=== PATIENT | male | born 1995 | race Caucasian/White ===

== ENCOUNTER 2018-08-14 10:18 | Emergency (ER) | payer SELFPAY ==
[2018-08-14 10:19] VITALS: BP 136/81; PULSE 75; RESP 18; TEMP 36.6; O2SAT 100; BMI 21.1
--- NOTE | 2018-08-14 11:00 | ED.DCSUM_ITS ---
History of Present Illness Chief Complaint: Ear Problem Informant: Patient Onset: - Context: Sudden Onset - Onset of pain Tuesday Timing: Continuous Quality: Pain Location: Right greater than left Current Severity: Moderate Maximum Severity: Severe Worsened by: Nothing Relieved by: Nothing Associated Symptoms: Viral-like symptoms Narrative: Patient is a 23-year-old male who presents with bilateral ear pain. He states the right ear hurts more than left. He does complain of nasal congestion. Onset of pain this past Tuesday. He states he has not placed a Q-tip in his ear. He has not noted any drainage. Denies ringing in his ear. Denies decreased hearing. Denies dental pain. Difficulty opening or closing his mouth. Does complain of mild right-sided facial pain. Denies headache. Denies light sensitivity, neck pain or neck stiffness. He denies rash. Past Medical History - Allergies and Home Meds Allergies/Adverse Reactions: Allergies No Known Allergies Allergy (Verified 08/14/18 10:21) Primary Care Physician: Care Physician,No Primary [Primary Care Provider] - Prior records reviewed: Yes Past Medical History: None Surgical History: no surgical history Lives: Alone Smoking Status: Current every day smoker Drugs: None Review of Systems General: Denies: Chills, Fever, Malaise, Sweats Eyes: Denies: Visual changes - bilaterally, Blurred vision - left, Diplopia ENT: Reports: Bilateral ear pain, Rhinorrhea. Denies: Sore throat Cardiovascular: Denies: Chest pain, Palpitations Respiratory: Reports: Cough. Denies: Dyspnea, Dyspnea on exertion Gastrointestinal: Denies: Nausea, Vomiting Musculoskeletal: Denies: Myalgias, Arthralgias, Neck pain, Swelling Neurological: Reports: Headache. Denies: Weakness, Parasthesia, Numbness Allergy: Denies: Uticaria, Swelling of the mouth, Swelling of the tongue Physical Exam Vital Signs/Narrative: Vital Signs Temp Pulse Resp BP Pulse Ox 08/14/18 10:19 98 F 75 18 136/81 H 100 Inital Vital Signs reviewed: Yes General: Well nourished, Well developed, Acute Distress, - - Patient is holding his right ear. Head: Normocephalic, Atraumatic Eyes: Perrl, EOMI. Negative for: Pale conjunctiva, Scleral icterus ENT: Moist mucous membranes, No rhinorrhea, TM's clear, - - There is pain with pulling on the auricle push on the tragus on the right. The external auditory canal is erythematous. There is also clicking bilaterally with opening closing his mouth over the TMJ joint. Neck: Supple, Nontender. Negative for: No lymphadenopathy, No JVD Cardiovascular: Regular rate, Regular rhythm, No murmurs, Normal S1, Normal S2 Respiratory: No distress, CTA bilaterally, Chest nontender Skin: Normal color, No rash Neurological: Alert, Oriented x3, Cranial nerves II-XII grossly intact, Normal Strength, Normal Sensation Diagnostic/Tx/Re-eval - Medical Decision Making Since there is no contraindication to NSAIDs he was treated with NSAIDs for his TMJ pain. He was treated with Cortisporin otic suspension for his otitis ext faisal on the right. ED Disposition - Plan for ED Patient: Disposition: Home or Assisted Living Diagnosis: Otitis externa of right ear, TMJ syndrome Instructions: ED Otitis Externa, ED TMJ Syndrome Prescriptions: Naproxen [Naprosyn] 500 mg PO BID #14 tab Ciprofloxacin/Hydrocortisone [Cipro Hc Otic Suspension] 10 drp OT 4X/DAY #1 drops.susp Referrals: Care Physician,No Primary [Primary Care Provider] - 5-7 Days Additional Instructions: Follow-up with your primary care provider.
[2018-08-14] MEDS: Naproxen 250 MG Tablet 500 MG PO (11:25)
== END 2018-08-14 11:26 | disposition home or self-care (01) ==
LOC: ED 11:17
PROVIDERS: Emergency Provider Emergency Medicine
DX: H60.91 Unspecified otitis externa, right ear (principal); M26.603 Bilateral temporomandibular joint disorder, unspecified; F17.200 Nicotine dependence, unspecified, uncomplicated
CPT/HCPCS: 99282

== ENCOUNTER 2022-09-25 13:45 | Emergency (ER) | payer MEDICAID, SELFPAY ==
[2022-09-25 13:46] VITALS: BP 148/105; PULSE 69; RESP 16; TEMP 36.3; O2SAT 99; BMI 30.9
--- NOTE | 2022-09-25 14:23 | EDS_ITS ---
HPI <IDALIA Christian - Last Filed: 09/25/22 14:32> History of Present Illness Chief Complaint: Laceration Narrative Narrative: Patient is a 27-year-old male with no significant medical history who has a tetanus vaccination update last year presents the emergency department laceration of the right index finger. Patient dates he was working on his car when he did not see a sharp edge and cut the palmar aspect of his right finger. Patient has full range of motion of the index finger. Patient is no numbness or tingling. Patient states that the bleeding was excessive, he saw some fatty tissue and knew he needed stitches PFS <IDALIA Christian - Last Filed: 09/25/22 14:32> [facility] Medical History no medical history Home Medications ciprofloxacin 0.2 %-hydrocortisone 1 % ear drops,suspension 10 drp OT 4X/DAY ##1 08/14/18 [Rx Last Taken Unknown] naproxen 500 mg tablet 500 mg PO BID #14 tabs 08/14/18 [Rx Last Taken Unknown] Allergy/AdvReac Type Severity Reaction Status Date / Time No Known Allergies Allergy Verified 09/25/22 13:46 Family History no significant family his Surgical History no surgical history Social History Smoking Status: Current every day smoker tobacco type: cigarettes ROS <IDALIA Christian - Last Filed: 09/25/22 14:32> ROS ED ROS Narrative Constitutional: Negative for fever, chills, weight loss, weakness Eyes: Negative for vision loss, vision change, double vision ENT: Negative for any sore throat, ear pain, congestion Cardiovascular: Negative for any chest pain, tightness, palpitations Respiratory: Negative for any cough, sputum production, hemoptysis, dyspnea, dyspnea on exertion, orthopnea Gastrointestinal: Negative for any abdominal pain, nausea, vomiting, diarrhea, constipation, blood in stool, blood in vomit : Negative for any urinary frequency, dysuria, retention, blood in urine Muscle skeletal: Negative for any muscle joint pain, stiffness, myalgias, arthr algias, neck pain, back pain Neurological: Negative for any headache, syncope, numbness or tingling, dizziness Skin: Negative for any rashes, lumps, itching, abrasions,. Positive for index finger laceration Psychiatric: Negative for any depression, anxiety, stress, suicidal ideation, homicidal ideation Hematologic: Negative for any easy bruising, excessive bruising, easy bleeding Allergies: Negative for any eczema, hives, rash EXAM <IDALIA Christian - Last Filed: 09/25/22 14:32> Physical Exam Narrative Exam Narrative: Vital signs reviewed. Extremities: No peripheral edema, no signs of gross trauma or deformity. Active full range of motion of all extremities. Patient has full range of motion of the right index finger, is able to flex and extend. There is no evidence to suspect any tendon injury. He does have a 2.5 horizontal laceration in between the PIP and DIP joint. No tendon involvement. No foreign body noted. Patient has equal strength, able move the right index finger against resistance to both flex and extend. Neuro: Cranial nerves II through XII intact, no focal neurological deficits. Skin: Clean dry and intact with no rash, purpura, petechiae, vesicles or pustules. Backs/flank: No CVA tenderness, no midline spinal tenderness, no deformity. Psych: Normal mood and affect. No SI, HI or acute psychosis. Const Vital Signs: 09/25/22 13:46 Temperature 97.4 F L Temperature Source Temporal Pulse Rate 69 Respiratory Rate 16 Blood Pressure 148/105 H Blood Pressure Mean 119 Pulse Ox 99 Oxygen Delivery Method Room Air <Dr. Jose Enrique King MD - Last Filed: 09/25/22 14:36> Physical Exam Const Vital Signs: 09/25/22 13:46 Temperature 97.4 F L Temperature Source Temporal Pulse Rate 69 Respiratory Rate 16 Blood Pressure 148/105 H Blood Pressure Mean 119 Pulse Ox 99 Oxygen Delivery Method Room Air MDM <IDALIA Christian - Last Filed: 09/25/22 14:32> [facility] Treatment and Re-Evaluation :: Patient appears medically well, patient appears nontoxic, vital signs are stable. Patient has a 2.5 cm laceration of the palmar aspect the right index finger between the PIP and DIP joint space. 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 His right hand was soaked in warm water and soap. The patient then was given a digital block to the right index finger. I was able to copiously irrigate the right index finger wound. Patient tolerated well. There is no foreign body noted. No tendon involvement. I was able place 5 simple interrupted sutures of 4-0 Ethilon. Patient tolerated well. He will use removed in 7 to 10 days. He was given return precautions return for any signs or symptoms of infection. Is happy with the plan of care, all questions answered <Dr. Jose Enrique King MD - Last Filed: 09/25/22 14:36> MDM Treatment and Re-Evaluation Comments:: I have personally performed a face to face assessment of the patient and have reviewed the [facility] Note. I performed a substantive portion of the visit including all aspects of the following. My sosa findings include: History: Patient lacerated his right index finger volar surface on a portion of a valve covered gasket that had a metal section. Tetanus is up-to-date 1 year ago. No distal numbness tingling weakness or loss of function. Exam: Patient awake alert no acute distress. He does have about 2 and half centimeter laceration on the volar surface of the index overlying the middle phalanx. He has normal tendon function for both superficial and deep tendons. Sensation is intact. Medical Decision Making: Suturing will be done. Signs symptoms of infection are explained to the patient and reasons for follow-up. Procedures <IDALIA Christian - Last Filed: 09/25/22 14:32> Lacerations Right index finger laceration: Length: 2.5 cm Depth: Sub Q Shape: Linear Prep: Sterile Conditions and Shure-Clens Laceration repair: Irrigated and Lidocaine Irrigated (ml): 200 Number of Sutures/Ira: 5 Suture Information: Vicryl, Simple and 4-0 Comment: Sterile gloves, sterile drapes were used. Patient tolerated well. Discharge Plan Triage Chief Complaint: Laceration ED Midlevel Provider: Paul De La Garza ED Provider: Jose Enrique King Dx/Rx/DC Orders Clinical Impression: Finger laceration Instructions: ED Laceration, Hand: All Closures Prescriptions: No Action ciprofloxacin-hydrocortisone 10 ML drops,suspension 10 drp OT 4X/DAY Qty: 1 0RF Rx Instructions: Right ear for 5-7 days naproxen 500 MG tablet 500 mg PO BID Qty: 14 0RF Primary Care Provider: Raheem Melissa Referrals: Raheem Melissa MD [Primary Care Provider] - Activity Restrictions/Additional Instructions: Please keep this area clean and dry. Please avoid moving the finger. Please have these removed in 7 to 10 days Disposition Disposition: Home, Self Care
[2022-09-25 14:32] VITALS: RESP 18
== END 2022-09-25 14:37 | disposition home or self-care (01) ==
PROVIDERS: Emergency Provider Emergency Medicine; PCP Family Medicine; Visit Provider Emergency Medicine
DX: S61.210A Laceration without foreign body of right index finger without damage to nail, initial encounter (principal); F17.210 Nicotine dependence, cigarettes, uncomplicated; W26.8XXA Contact with other sharp object(s), not elsewhere classified, initial encounter; Y93.89 Activity, other specified; Y92.810 Car as the place of occurrence of the external cause
CPT/HCPCS: 12001; 99282